=== PATIENT | female | born 1940 ===

== ENCOUNTER → 2020-12-17 08:00 | Outpatient (CLI) | payer OTHER ==
[~2020-12-17 08:00] MED LIST: COZAA PO; GABAPEN PO; GLIMEPIRIDE4 MG PO; JANUMET 50-1,01 EACH PO; METOP PO; NORV PO; PROTONIX40 MG PO; SIMVAST PO; SINGULAIR 10MG10 MG PO; SYNTHROID100 MCG PO; ZYRTEC10 M3 PO
== END | disposition home or self-care (01) ==
LOC: RAD 08:00 → LAB 08:00 → ADM 10:00 → CIR.AMB 12-24 10:00 → EDSTATUS 12-24 10:00
PROVIDERS: ATTEND Colon & Rectal Surgery
DX: R07.89 Other chest pain (principal); I10 Essential (primary) hypertension; R94.31 Abnormal electrocardiogram [ECG] [EKG]; R15.9 Full incontinence of feces; Z03.818 Encounter for observation for suspected exposure to other biological agents ruled out

== ENCOUNTER 2021-05-20 06:26 | Day surgery (SDC) | payer OTHER ==
[~2021-05-20 06:26] MED LIST changes: +LOSARTAN PO; +LOSARTAN POTAS100 MG PO; +PANTOPRAZOLE SO40 M2 PO; +TOPROL XL50 M1 PO; +VITAMIN B122500 MCG PO; +VITAMIN D PO; +ZYRTEC10 MG PO
== END 2021-05-20 11:35 | disposition home or self-care (01) ==
LOC: CIR.AMB 06:26
PROVIDERS: ATTEND Colon & Rectal Surgery
DX: R15.9 Full incontinence of feces (principal); Z20.822 Contact with and (suspected) exposure to COVID-19
CPT/HCPCS: 64581; 95972; C1778

== ENCOUNTER 2021-06-03 06:51 | Day surgery (SDC) | payer OTHER | END 2021-06-03 17:32 | disposition home or self-care (01) | LOC: CIR.AMB 06:51 | PROVIDERS: ATTEND Colon & Rectal Surgery | DX: R15.9 Full incontinence of feces (principal); Z20.822 Contact with and (suspected) exposure to COVID-19 | CPT/HCPCS: 64590; 95972; L8679 ==